=== PATIENT | female | born 1935 | race Caucasian/White ===

== ENCOUNTER 2017-02-28 04:08 | Inpatient (IN) ==
[2017-02-28] MEDS ORDERED: Naloxone 0.4 MG/ML INJ IVP PRN (08:23)
[2017-02-28] MEDS ORDERED: Ondansetron 4 MG/2 ML VIAL IVP PRN (08:23)
[2017-02-28] MEDS ORDERED: Acetaminophen 325 MG TABLET PO PRN (08:23)
--- NOTE | 2017-02-28 08:23 | Internal Med History&Physical ---
Date of Encounter: 02/28/17 Time of Encounter: 07:50 Assessment and Plan (1) CVA (cerebrovascular accident) Current visit: Yes Status: Acute Presented with stroke-like symptoms, unclear timeline but does not fit window for tPA. CT head shows old B/L basal ganglia infarcts along with new infarct in left centrum semiovale white matter, uncertain duration. Check MRI brain, 2D EChocardiogram, B/L Carotid Doppler. Start ASA, statin. Check lipid profile, HbA1C. PT/OT evaluation. Neurology consult. Continue Telemetry monitoring, check Troponins. Will; allow permissive HTN upto 180/110 at this time; may need antihypertensives at discharge. Qualifiers: CVA mechanism: unspecified Qualified Code(s): I63.9 - Cerebral infarction, unspecified (2) CHARLI (acute kidney injury) Current visit: Yes Status: Acute previous serum creatinine noted to be normal;, currently mildly elevated at 1.28 ; IV hydration and repeat BMP; likely dehydration. (3) Anemia Current visit: Yes Status: Chronic Noted to have fluctuating Hb, was around 12 2 months ago, now 9.9. Check stool for occult blood, iron profile, Vit B12, FA levels. Recent Colonoscopy was normal except divertoculosis. Qualifiers: Anemia type: unspecified type Qualified Code(s): D64.9 - Anemia, unspecified (4) CHF (congestive heart failure) Current visit: Yes Status: Acute Patient was noted to be dyspneic and congested, mild pedal edema. Chest XRay shows findings suggestive of mild pulmonary edema. Received a dose of IV Lasix in the ER. Monitor urine output and check Echocardiogram. Spot dose Lasix as needed to avoid further CHARLI. Qualifiers: Congestive heart failure type: unspecified congestive heart failure type Congestive heart failure chronicity: acute Qualified Code(s): I50.9 - Heart failure, unspecified (5) CAD (coronary artery disease) Current visit: Yes Status: Chronic h/o- PCI, however states she does not take any home meds. Start ASA, statin as above. Monitor BP closely, may need to be started on beta-oneil at discharge. Qualifiers: Coronary Disease-Associated Artery/Lesion type: [place] artery [place] vs. transplanted heart: beaver heart Associated angina: with unspecified angina Qualified Code(s): I25.119 - Atherosclerotic heart disease of beaver coronary artery with unspecified angina pectoris (6) Back pain Current visit: Yes Status: Acute secondary to recent back surgery; start pain control with PRN Oxycodone and IV Morphine, monitor closely. Qualifiers: Back pain location: low back pain Chronicity: chronic Back pain laterality: midline Sciatica presence: without sciatica Qualified Code(s): M54.5 - Low back pain; G89.29 - Other chronic pain; G89.29 - Other chronic pain Internal Medicine - H&P: HPI Chief complaint: Weakness Admitted From: Emergency Dept Plans for Post Hospital Care: Transfer Inp Rehab Fac History of present illness: Ms. Cochran is a 81 year old female with h/o- CVA, CAD was brought in by family with c/o- generalized weakness and not feeling herself since 2 days. These symptoms were reported by patient's , who is currently admitted to ICU. History obtained from her daughter at bedside, who reports that patient has been weak and lethargic, with episodes of staggering and dizziness, and intermittently mildly confused, on 02/26/17. However she attributed these symptoms to Flu as she also had chest congestion, some dry cough and shortness of breath fo the last few days. No chest pain, fever/chills, palpitations. Patient now reports right arm and hand weakness and hand numbness that have just started after arrival to the ER. No blurred vision, dysphagia, slurred speech. She reports a bad headache. Also reports abdominal pain that just started, does have chronic diarrhea but no vomiting, hematochezia. She is also uncomfortable now due to back pain from her recent spinal surgery. Of note, patient takes no meds at home except PRN Tylenol. Past Med Surg Social Fam HX - Past Medical History Medical history: arthritis, coronary artery disease, CVA, GERD, kidney stones, myocardial infarction, other Psychiatric history: depression - Past Surgical History Surgical History: angioplasty/stent, appendectomy, cholecystectomy, hip replacement (right), hysterectomy, orthopedic, other, other (spinal surgery) - Social History Smoking Status: Never smoker Smokeless Tobacco Status: No Alcohol use: none Drug use: none Occupational status: retired Current living situation: Home Activity Level: Uses cane/walker Recent Out of Country Travel Within the Last 8 Weeks: No Exposure or Possible Exposure to Illness During Travel: No - Family History Mother Living Status: Hx Family Cardiac Disorders: No Hx Family Respiratory Disorders: Yes Hx Family Cancer: Yes Hx Family GI Disorders: Yes Hx Family Genitourinary Disorders: No Hx Family Endocrine Disorder: No Hx Family Musculoskeletal Disorders: No Hx Family Neuromuscular Disorders: No Hx Family Neurologic Disorders: No Hx Family HEENT Disorders: No Hx Family Autoimmune Disorders: No Hx Family Reproductive Disorders: No Hx Family Psychosocial Disorders: No Hx Family Medical Disorders: No Internal Medicine - H&P: Meds Fluticasone Propionate Nasal [Flonase] 1 spr NS BID 02/28/17 [History] Losartan [Cozaar] 25 mg PO DAILY 02/28/17 [History] Oxycodone HCl/Acetaminophen [Percocet 10-325 mg Tablet] 1 tab PO BID PRN [History] Pramipexole Di-HCl [Pramipexole Dihydrochloride] 1.5 mg PO DAILY 02/28/17 [ History] 3 Allergy/AdvReac Type Severity Reaction Status Date / Time Penicillins Allergy Hives Verified 10/05/15 14:29 IVP Dye AdvReac Vomiting Uncoded 06/02/15 12:38 All Systems PM: A 10-system review of systems was performed and is negative for pertinent findings except as documented above in the HPI. - Constitutional Constitutional: lethargy, weakness, no chills, no fever(s), no night sweats - EENT Eyes: no change in vision, no discharge, no pain, no photophobia Ears: no ear discharge, no ear pain, no tinnitus Nose, mouth and throat: no dysphagia, no nasal discharge, no neck pain, no sore throat - Cardiovascular Cardiovascular ROS IM: no chest pain, no diaphoresis, no dyspnea, no lightheadedness, no palpitations, no syncope - Respiratory Respiratory: cough, dyspnea, chest congestion - Gastrointestinal Gastrointestinal: abdominal pain, diarrhea - Genitourinary Genitourinary: no change in urinary stream, no dysuria, no flank pain, no hematuria - Musculoskeletal Musculoskeletal ROS IM: muscle weakness, numbness - Integumentary Integumentary IM: no rash, no unusual bruising - Neurological Neurological ROS: abnormal gait, dizziness, headache(s), numbness, weakness - Hematologic/Lymphatic Hematologic/Lymphatic: no easy bruising - Constitutional Vitals: Temp Pulse Resp BP Pulse Ox 97.5 F L 85 17 145/88 95 02/28/17 06:01 02/28/17 06:01 02/28/17 06:01 02/28/17 06:01 02/28/17 06:01 General appearance: Present: mild distress, A&O X 3, answers questions appropriately - Respiratory Respiratory exam: Present: CTAB. Absent: accessory muscle use, rales, rhonchi, wheezes - Cardiovascular Cardiovascular exam: Present: RRR, +S1, +S2. Absent: diastolic murmur, gallop, rubs, systolic murmur - GI/Abdominal GI/Abdominal exam: Present: normal bowel sounds, soft (suprapubic tenderness), no peritoneal signs. Absent: distended, tenderness - Extremities Exam Extremities exam: Present: full ROM, warm, radial pulses palpable and symmetrical. Absent: calf tenderness, cyanotic, pedal edema - Neurological Exam Neurological exam: Present: CN II-XII intact, oriented X3, no focal deficits, strengths equal and symetr throughout (diffuse decrease in motor power, 4/5 B/L LE and left UE; 3-4/5 right UE). Absent: pronater drift, facial droop, speech deficit - Skin Skin exam: Present: dry, intact Internal Med - H&P Results - EKG Data EKG shows normal: sinus rhythm Rate: normal
[2017-02-28] MEDS: Azithromycin 500 MG in D5% in Water 250 ML IVPB SCH (09:32)
[2017-02-28] MEDS: Aspirin Enteric Coated 81 MG Tablet PO SCH (09:32)
[2017-02-28] MEDS: *HR* Morphine 2 MG/ML SYRINGE IVP PRN ×2 (09:35→15:57)
[2017-02-28 09:50] LABS: Calcium 9.8 mg/dL (8.6-10.8); Potassium 3.6 mEq/L (3.5-4.5)
[2017-02-28 10:12] LABS: Chol/HDL Ratio 4.1 (0-4.9); Magnesium 1.7 mg/dL (1.6-2.6)
[2017-02-28] MEDS: *HR* OxyCODONE Immed Rel 5 MG TABLET PO PRN ×2 (11:51→22:22)
[2017-02-28] MEDS ORDERED: 0.9 % Sodium Chloride 1,000 ML IVC SCH (12:15)
[2017-02-28] MEDS: ALPRAZolam 0.25 MG TABLET PO PRN ×2 (12:41→22:22)
--- NOTE | 2017-02-28 16:43 | Neurology - Consult Note ---
Date of Encounter: 02/28/17 Time of Encounter: 16:39 Assessment and Plan (1) Acute exacerbation of CHF (congestive heart failure) Current Visit: No Status: Acute Patient developed visual difficulty, shaking, generalized weakness, confusion and unsteady gait, without focal neurological deficits. MRI of brain showed no acute infarct, but chronic right parietal infarct with T2 shine through on DW images. the Chronic infarct is on the right hemisphere therefore it would not explain her right sided weakness. She does right hip pain which can cause right leg weakness. Likely this is not a neurological condition but related to medical conditions may be CHF exacerbation. She does feel better now and her neurological status returned to baseline. Will continue Aspirin 81mg daily for secondary CVA prevention. Await carotid artery duplex and echocardiography. Continue medical/cardiac work up and treatment as necessary. Will sign off now and please call if any questions Qualifiers: Congestive heart failure type: unspecified congestive heart failure type Qualified Code(s): I50.9 - Heart failure, unspecified History of Present Illness Chief complaint: stroke like symptoms HPI: Ms. Cochran is a 81 year old female with PMH significant for DM, CTS, kidney disease, CAD who developed acute onset of visual changes, shaking activity, weakness and fall in the bathroom. This occurred in the morning on Sunday. She states that she felt fine on Sunday and went to [employer]. Sunday morning she woke up when she stood up she could not see and she was also shaking the her asked her what was going on and she was feeling sick. Then she went to bathroom and fell there. She was also confused and was weak. she was brought to ER and thought not to be candidate for tPA thrombolysis. MRI of brain showed no acute intracranial abnormality. There is remote small posterior right frontal lobe infarct. and remote bilateral derebellar lacunar infarcts. noted. At present time the patient feel much better and she is back to her baseline. She has some right arm and leg weakness and some joint and hip pain. Is taking aspirin 81mg daily Past Med Surg Social Fam HX - Past Medical History Medical history: arthritis, coronary artery disease, CVA, GERD, kidney stones, myocardial infarction, other Psychiatric history: depression - Past Surgical History Surgical History: angioplasty/stent, appendectomy, cholecystectomy, hip replacement (right), hysterectomy, orthopedic, other, other (spinal surgery) - Social History Smoking Status: Never smoker Smokeless Tobacco Status: No Alcohol use: none Drug use: none - Family History Mother Living Status: Hx Family Cardiac Disorders: No Hx Family Respiratory Disorders: Yes Hx Family Cancer: Yes Hx Family GI Disorders: Yes Hx Family Genitourinary Disorders: No Hx Family Endocrine Disorder: No Hx Family Musculoskeletal Disorders: No Hx Family Neuromuscular Disorders: No Hx Family Neurologic Disorders: No Hx Family HEENT Disorders: No Hx Family Autoimmune Disorders: No Hx Family Reproductive Disorders: No Hx Family Psychosocial Disorders: No Hx Family Medical Disorders: No Medications and Allergies Fluticasone Propionate Nasal [Flonase] 1 spr NS BID 02/28/17 [History] Losartan [Cozaar] 25 mg PO DAILY 02/28/17 [History] Oxycodone HCl/Acetaminophen [Percocet 10-325 mg Tablet] 1 tab PO BID PRN [History] Pramipexole Di-HCl [Pramipexole Dihydrochloride] 1.5 mg PO DAILY 02/28/17 [ History] 3 Allergy/AdvReac Type Severity Reaction Status Date / Time Penicillins Allergy Hives Verified 10/05/15 14:29 IVP Dye AdvReac Vomiting Uncoded 06/02/15 12:38 All Systems: A 10-system review of systems was performed and is negative for pertinent findings except as documented above in the HPI. Physical Examination - Vital Signs Vital Signs: Initial Vital Signs Temp Pulse Resp BP Pulse Ox 97.5 F L 85 17 145/88 95 02/28/17 06:01 02/28/17 06:01 02/28/17 06:01 02/28/17 06:01 02/28/17 06:01 - Constitutional General appearance: comfortable - Neurologic Sensorimotor examination: intact Detailed motor examination: grossly full strength in all extremities (right side , especially the right leg is slightly weaker, able to life leg off the bed, but range of motion limited to hip and knee pain), full strength in all major muscle groups Detailed sensory examination: intact (Grossly intact) Posture: other Reflex and gait examination: other (Gait not assesse.) Reflexes: Biceps: 1+, Triceps: 1+, Brachioradialis: 1+, Patella: 1+, Achilles: 1 + Mental Status Examination: awake, alert, oriented to person, oriented to place, oriented to time, follows commands appropriately, answers questions appropriately, no agnosia, no aphasia, no aproxia Cranial nerve examination: PERRL, EOMI, visual maldonado intact, corneal reflexes brisk symmetrically, sensory to face intact, mastication intact, no facial asymmetry is present, no dysarthria, hearing is intact symmetrically, soft palate elevates bilaterally upon phonation, gag reflex intact, flexes SCM and trapezius muscles symmetrically with full power, tongue protrudes midline, no atrophy or facial fasiculations present Results - Laboratory Findings CBC and BMP: 02/28/17 09:05 Abnormal lab findings: Abnormal lab results Est GFR ( Amer) 57 (> 60) L 02/28/17 09:05 Est GFR (Non-Af Amer) 47 (> 60) L 02/28/17 09:05 Glucose 232 mg/dL (70-99) H 02/28/17 09:05 Cholesterol 208 mg/dL (< 200) H 02/28/17 09:05 LDL Cholesterol, Calc 136 mg/dL (0-99) H 02/28/17 09:05 Consult Discharge Plan - Plan Referrals: NONE,PCP [Primary Care Provider] -
[2017-02-28] MEDS: Benzocaine 20% 9 GM GEL..GRAM. TP PRN (22:24)
[2017-02-28] MEDS: Sennosides 8.6 MG TABLET PO SCH (23:14)
[2017-03-01] MEDS: *HR* Morphine 2 MG/ML SYRINGE IVP PRN ×2 (03:34→09:01)
[2017-03-01 03:47] LABS: Basophils % 0.4 %; Eosinophils # 0.1 K/mcL (0.0-0.6); Eosinophils % 1.7 %; Hematocrit 31.4 % (35.3-44.9); Immature Granulocytes % 0.5 % (0-4); Immature Platelets 3.6 % (1.1-6.1); Lymphocytes # 1.6 K/mcL (0.6-4.6); Lymphocytes % 19.9 %; Mean Corpuscular HGB Conc 31.8 g/dL (31.6-35.5); Mean Corpuscular Hemoglobin 27.3 pg (28.0-33.3); Mean Corpuscular Volume 85.8 fL (83.0-100.0); Mean Platelet Volume 10.9 fL (9.4-12.4); Monocytes # 0.6 K/mcL (0.0-1.3); Monocytes % 6.9 %; Neutrophils # 5.8 K/mcL (1.6-8.9); Platelet Count 180 K/mcL (140-400); Red Blood Count 3.66 M/mcL (3.82-4.97); Red Cell Distribution Width 15.4 % (11.5-14.5); Segmented Neutrophils % 70.6 %
[2017-03-01 04:04] LABS: BUN/Creatinine Ratio 22 (6-26); Blood Urea Nitrogen 19 mg/dL (7-20); Calcium 9.7 mg/dL (8.6-10.8); Carbon Dioxide 24 mEq/L (19-29); Chloride 105 mEq/L (98-109); Glucose 112 mg/dL (70-99); Osmolality,Calculated 291 (280-300); Potassium 4.5 mEq/L (3.5-4.5); Sodium 139 mEq/L (136-145); eGFR For African Americans > 60 (> 60); eGFR For Non-African Americans > 60 (> 60)
--- NOTE | 2017-03-01 07:15 | Internal Med Progress Note ---
<Rosalio Price - Last Filed: 03/01/17 11:44> Date of Encounter: 03/01/17 Time of Encounter: 07:14 - Assessment and plan (1) CVA (cerebral vascular accident) Current Visit: Yes Status: Acute Assessment and plan: Patient presented with stroke-like symptoms, acute onset of visual changes, shaking activity, weakness and fall in the bathroom She reports numbness and weakness in her right leg and right digits 3 -5 and seeing black spots this morning. She was not to be candidate for tPA thrombolysis due to onset of symptoms early Sunday morning CT head shows old B/L basal ganglia infarcts along with new infarct in left centrum semiovale white matter, uncertain duration. MRI of brain showed no acute intracranial abnormality. There is remote small posterior right frontal lobe infarct and remote bilateral derebellar lacunar infarcts. noted. 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 CXR shows findings suggestive of mild pulmonary edema. Echocardiogram reveals LVEF 60-65%. Mild left ventricular diastolic dysfunction. Received a dose of IV Lasix in the ER. Spot dose Lasix as needed to avoid further CHARLI. Monitor urine output Qualifiers: Congestive heart failure type: diastolic Congestive heart failure chronicity: acute Qualified Code(s): I50.31 - Acute diastolic (congestive) heart failure (3) CHARLI (acute kidney injury) Current Visit: Yes Status: Acute Assessment and plan: Previous serum creatinine noted to be normal;, currently mildly elevated at 1.28 on admission; repeat BMP improved after IV hydration; likely dehydration. (4) Essential (primary) hypertension Current Visit: Yes Status: Acute Assessment and plan: Monitor BP closely, patient on Losartan 25MG PO daily (5) CAD (coronary artery disease) Current Visit: Yes Status: Chronic Assessment and plan: h/o- PCI, however states she does not take any home meds. Continue ASA, statin as above. Monitor BP closely, may need to be started on beta-oneil at discharge. Qualifiers: Coronary Disease-Associated Artery/Lesion type: [place] artery [place] vs. transplanted heart: [place] heart Associated angina: with unspecified angina Qualified Code(s): I25.119 - Atherosclerotic heart disease of [place] coronary artery with unspecified angina pectoris (6) Diabetes mellitus Current Visit: No Status: Chronic Assessment and plan: HGB a1c 5.7 Continue to monitor Qualifiers: Diabetes mellitus type: type 2 Diabetes mellitus complication status: with unspecified complications Diabetes mellitus skilled nursing insulin use: unspecified buttermaker helper insulin use status Qualified Code(s): E11.8 - Type 2 diabetes mellitus with unspecified complications (7) Anemia Current Visit: Yes Status: Chronic Assessment and plan: Noted to have fluctuating Hgb, was around 12 two months ago, now 10. Check stool for occult blood, iron profile, Vit B12, FA levels. Recent Colonoscopy was normal except diverticulosis. Continue to monitor Qualifiers: Anemia type: unspecified type Qualified Code(s): D64.9 - Anemia, unspecified (8) Back pain Current Visit: Yes Status: Acute Assessment and plan: Secondary to recent back surgery; start pain control with PRN Oxycodone and IV Morphine, monitor closely. Qualifiers: Back pain location: low back pain Chronicity: chronic Back pain laterality: midline Sciatica presence: without sciatica Qualified Code(s): M54.5 - Low back pain; G89.29 - Other chronic pain; G89.29 - Other chronic pain (9) DVT prophylaxis Current Visit: No Status: Acute Assessment and plan: SCDs - Subjective Interval history: Patient resting comfortably in bed after eating breakfast. She reports numbness and weakness in her right leg and right digits 3 -5 and seeing black spots this morning. Patient also reports productive cough for the past 2 weeks despite finishing 4 bottles of cough syrup and dysuria. Patient denies fever, chills, CP , N/V/D, or leg edema. - Constitutional Vitals: Temp Pulse Resp BP Pulse Ox 98.2 F 59 20 126/59 94 03/01/17 04:00 03/01/17 04:00 03/01/17 04:00 03/01/17 04:00 03/01/17 04:00 General appearance: Present: cooperative, A&O X 3, pleasant, no acute distress, answers questions appropriately - Head Head exam: Present: atraumatic, normal inspection, normocephalic - Eye Eye exam: Present: EOMI, PERRL - ENT ENT exam: Present: mucous membranes dry, normal oropharynx - Neck Neck exam general surgery: Present: normal inspection, supple. Absent: tenderness - Respiratory Respiratory exam: Present: CTAB. Absent: accessory muscle use, respiratory distress, wheezes - Cardiovascular Cardiovascular exam: Present: RRR, +S1, +S2 - GI/Abdominal GI/Abdominal exam: Present: normal bowel sounds. Absent: distended, guarding, tenderness - Additional comments: no posey - Extremities Exam Extremities exam: Present: normal inspection, pedal edema (1+), radial pulses palpable and symmetrical - Back Exam Back exam: Present: normal inspection. Absent: tenderness, vertebral tenderness - Neurological Exam Neurological exam: Present: alert, oriented X3. Absent: altered, strengths equal and symetr throughout, pronater drift, facial droop, speech deficit - Expanded Neurological Exam Neurological exam expanded: Present: protecting the airway Patient oriented to: Present: person, place, time Speech: Present: fluid speech Cerebellar function: finger to nose: Normal Sensory exam: lower extremity light touch: Normal, upper extremity light touch: Normal Neuro motor strength exam: LUE: 5, RUE: 4, LLE: 5, RLE: 4 Coma Scale Eye Opening: Spontaneous Coma Scale Motor Response: Obeys Commands Coma Scale Verbal Response: Oriented Coma Scale Total: 15 - Psychiatric Psychiatric exam: Present: normal affect, normal mood - Skin Skin exam: Present: dry, normal color, warm. Absent: pallor Internal Medicine: Result - Labs CBC & Chem 7: 03/01/17 03:27 03/01/17 03:27 Labs: Short CBC 03/01/17 Range/Units 03:27 WBC 8.1 (4.3-11.1) K/mcL Hgb 10.0 L (11.5-15.4) g/dL Hct 31.4 L (35.3-44.9) % Plt Count 180 (140-400) K/mcL Neutrophils # 5.8 (1.6-8.9) K/mcL BMP 02/28/17 03/01/17 09:05 03:27 Sodium 139 139 Potassium 3.6 4.5 Chloride 104 105 Carbon Dioxide 22 24 BUN 19 19 Creatinine 1.11 0.87 Glucose 232 H 112 H Calcium 9.8 9.7 Cardiac Enzymes 02/28/17 02/28/17 02/28/17 Range/Units 09:05 14:13 21:43 Troponin I 0.01 0.00 0.00 (0-0.03) ng/mL - Pulse Oximetry Interpretation Digit-Finger Pulse Oximetry Readin (on RA) - Impressions Impressions Brain MRI 02/28/17 08:27 IMPRESSION: No acute intracranial abnormality. Remote, small posterior right frontal lobe infarct. Mild chronic microvascular ischemic disease and multiple, remote bilateral cerebellar lacunar infarcts. D/ / 02/28/2017 11:00:27 Sherry Pollock MD / ernst Interpreting Provider: Sherry Pollock MD Echocardiogram 02/28/17 08:27 Impressions: LVEF 60-65%. Mild left ventricular diastolic dysfunction. Normal right ventricular structure and function. Mild aortic regurgitation. Mild tricuspid regurgitation. No pulmonary hypertension. No evidence of PFO with agitated saline contrast. Left Ventricular Wall Motion: Rest Echo Findings All wall segments showed normal motion. Findings: Study Quality * Technically adequate exam. ECG Findings * Normal sinus rhythm. Left Ventricle * LVEF 60-65%. * Asymmetric basal septal hypertrophy. LVOT not fully evaluated by Doppler. * Mild left ventricular diastolic dysfunction. Right Ventricle * Normal right ventricular structure and function. Left Atrium * Normal left atrial size. Right Atrium * Normal right atrial size. Aortic Valve * Trileaflet aortic valve. * Normal aortic valve structure. * No aortic stenosis. * Mild aortic regurgitation. Mitral Valve * Normal mitral valve structure. * No mitral stenosis. * Mild mitral annular calcification * Trace mitral regurgitation. Tricuspid Valve * Mild tricuspid regurgitation. * Normal tricuspid valve structure. * Estimated RA pressure is 3 mmHg. * Estimated RVSP is 28 mmHg. * No pulmonary hypertension. Pulmonic Valve * Pulmonic valve is not well visualized. * No pulmonic stenosis. * No pulmonic regurgitation. Pulmonary Artery * Pulmonary artery not well visualized. Aorta * Normally sized aortic root. Pericardium * There is no pericardial effusion present. Interatrial Septum * No evidence of PFO by color Doppler. * No evidence of PFO with agitated saline contrast. IVC * Normal IVC dimensions and inspiratory collapse. Consult Discharge Plan - Plan Referrals: NONE,PCP [Primary Care Provider] - <Pro Bunn P - Last Filed: 03/01/17 18:08> Date of Encounter: 03/01/17 - Constitutional Vitals: Temp Pulse Resp BP Pulse Ox 98.7 F 75 14 155/86 97 03/01/17 15:08 03/01/17 15:08 03/01/17 15:08 03/01/17 15:08 03/01/17 15:08 Internal Medicine: Result - Labs CBC & Chem 7: 03/01/17 03:27 03/01/17 03:27 Labs: Short CBC 03/01/17 Range/Units 03:27 WBC 8.1 (4.3-11.1) K/mcL Hgb 10.0 L (11.5-15.4) g/dL Hct 31.4 L (35.3-44.9) % Plt Count 180 (140-400) K/mcL Neutrophils # 5.8 (1.6-8.9) K/mcL BMP 03/01/17 03:27 Sodium 139 Potassium 4.5 Chloride 105 Carbon Dioxide 24 BUN 19 Creatinine 0.87 Glucose 112 H Calcium 9.7 Cardiac Enzymes 02/28/17 Range/Units 21:43 Troponin I 0.00 (0-0.03) ng/mL Urine 03/01/17 Range/Units 12:33 Urine Color Yellow (Yellow) Urine Clarity Clear (Clear) Urine pH 6.0 (5.0-8.0) pH Units Ur Specific Start 1.011 (1.010-1.025) Urine Protein Negative (Neg-Trace) mg/dL Urine Glucose (UA) Normal (Normal) mg/dL - Impressions Impressions Chest X-Ray 03/01/17 09:09 IMPRESSION: COPD without acute cardiopulmonary process identified. D/ / Rosalio Edwards MD / Rosalio Edwards MD Interpreting Provider: Rosalio Edwards MD Videofluoroscopic Swallow 03/01/17 14:28 IMPRESSION: No aspiration. Transient penetration with applesauce and thin liquid. Please see separate speech pathology report for full discussion of findings and recommendations. D/ / Olu Emerson MD / Olu Emerson MD Interpreting Provider: Olu Emerson MD - Attending Attestation I examined this patient and my medical decision-making was reviewed with the Resident Physician. I agree with the documented findings, disposition and treatment plan as described except to the extent set forth below. 81/female Admitted with weakness. Evaluated by neurology. Neurologic does not feel this is likely secondary to any cerebrovascular insult. We will follow the recommendations from neurology.
[2017-03-01] MEDS: Aspirin Enteric Coated 81 MG Tablet PO SCH (08:44)
[2017-03-01] MEDS: Sennosides 8.6 MG TABLET PO SCH (08:44)
[2017-03-01] MEDS: Azithromycin 500 MG in D5% in Water 250 ML IVPB SCH (08:45)
[2017-03-01 08:54] LABS: Hemoglobin A1C 5.7 %
[2017-03-01] MEDS: GuaiFENesin/Dextromethorphan TABLET PO SCH ×2 (09:08→21:26)
[2017-03-01] MEDS: Ipratropium/Albuterol Neb 3 ML IH SCH ×3 (10:35→22:21)
--- NOTE | 2017-03-01 12:08 | Neurology Progress Note ---
Date of Encounter: 03/01/17 Time of Encounter: 12:04 Assessment and Plan (1) Acute exacerbation of CHF (congestive heart failure) Current Visit: No Status: Inactive Patient seen and examined. 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 Carotid artery duplex already done pending result. Right leg weakness likely the results of lumbar radiculopathy/spondylosis and she has chronic weakness to the right leg aggravated by right knee and hip. She is to follow up with Ortho at [place] in March/2017. Do not feel that CTA of brain will offer additional benefits, unless carotid artery duplex study returns remarkable. Will sign off at this time i will gladly see the patient again at your request. Qualifiers: Congestive heart failure type: unspecified congestive heart failure type Qualified Code(s): I50.9 - Heart failure, unspecified Subjective Principal diagnosis: visual changes and leg weakness Interval history: patient seen and examined. She complained of having visual changes this AM seeing flashes or even tunnel vision when assessed by PT. Visual changes bilateral and last few seconds in duration. Resolved. Right leg is weak, likely result from lumbar spondylosis. She states that she has been getting stronger after the back surgery in November/2016. Hip flexion 4+/ 5. She tells me that she was weaker prior to lumbar surgery and that she has been slowly improving and became stronger Objective - Constitutional Vitals: Temp Pulse Resp BP Pulse Ox 98.0 F 65 12 155/86 95 03/01/17 10:50 03/01/17 10:50 03/01/17 10:50 03/01/17 10:50 03/01/17 10:50 - Neurological Exam Sensorimotor examination: Present: intact Motor Examination: Present: grossly full strength in all extremities (Right hip flexion 4+/5. hand chaperone equal), full strength in all major muscle groups Motor examination - right side: 4/5: hip flexors, tibialis Anterior, quadriceps , toe extension (EHL), plantarflexion, 5/5: deltoids, biceps, triceps, wrist flexion, wrist extension, tray drier Motor examination - left side: 5/5: deltoids, biceps, triceps, wrist flexion, wrist extension, hip flexors, tray drier, quadriceps, tibialis Anterior, toe extension (EHL), plantarflexion Sensation intact: Present: intact (Grossly intact) Posture: Present: other Reflex and gait examination: other (Gait not assesse.) Reflexes: Biceps: 1+, Triceps: 1+, Brachioradialis: 1+, Patella: 1+, Achilles: 1 + Mental Status Examination: Present: awake, alert, oriented to person, oriented to place, oriented to time, follows commands appropriately, answers questions appropriately, no agnosia, no aphasia, no aproxia Cranial nerve examination: Present: PERRL, EOMI, visual maldonado intact, corneal reflexes brisk symmetrically, sensory to face intact, mastication intact, no facial asymmetry is present, no dysarthria, hearing is intact symmetrically, soft palate elevates bilaterally upon phonation, gag reflex intact, flexes SCM and trapezius muscles symmetrically with full power, tongue protrudes midline, no atrophy or facial fasiculations present Results - Laboratory Findings CBC and BMP: 03/01/17 03:27 03/01/17 03:27 Abnormal lab findings: Abnormal lab results RBC 3.66 M/mcL (3.82-4.97) L 03/01/17 03:27 Hgb 10.0 g/dL (11.5-15.4) L 03/01/17 03:27 Hct 31.4 % (35.3-44.9) L 03/01/17 03:27 MCH 27.3 pg (28.0-33.3) L 03/01/17 03:27 RDW 15.4 % (11.5-14.5) H 03/01/17 03:27 Glucose 112 mg/dL (70-99) H 03/01/17 03:27 Hemoglobin A1c 5.7 % (-5.6) H 03/01/17 03:27 Cholesterol 208 mg/dL (< 200) H 02/28/17 09:05 LDL Cholesterol, Calc 136 mg/dL (0-99) H 02/28/17 09:05 Consult Discharge Plan - Plan Referrals: NONE,PCP [Primary Care Provider] -
[2017-03-01 12:54] LABS: Bilirubin,Urine Negative (Negative); Blood,Urine Negative (Negative); Clarity,Urine Clear (Clear); Color,Urine Yellow (Yellow); Glucose,Urine (UA) Normal (Normal); Ketones,Urine Negative (Negative); Leukocyte Esterase,Urine Trace (Negative); Nitrite,Urine Positive (Negative); Protein,Urine Negative (Neg-Trace); Specific Gravity,Urine 1.011 (1.010-1.025); Urobilinogen,Urine Normal (Normal)
[2017-03-01 12:57] LABS: Bacteria,Urine Many per hpf (None-Few); Hyaline Casts,Urine None Seen per lpf (None-Few); RBC,Urine 0-3 per hpf (0-3); Squamous Epithelial Cell,Urine Many per lpf (None-Few)
[2017-03-01] MEDS: ALPRAZolam 0.25 MG TABLET PO PRN (14:45)
[2017-03-01] MEDS: *HR* OxyCODONE Immed Rel 5 MG TABLET PO PRN ×2 (14:45→22:03)
[2017-03-02] MEDS: *HR* Morphine 2 MG/ML SYRINGE IVP PRN (02:31)
[2017-03-02] MEDS: Ipratropium/Albuterol Neb 3 ML IH SCH ×4 (04:04→22:23)
[2017-03-02 04:20] LABS: BUN/Creatinine Ratio 25 (6-26); Blood Urea Nitrogen 23 mg/dL (7-20); Calcium 9.3 mg/dL (8.6-10.8); Carbon Dioxide 25 mEq/L (19-29); Chloride 104 mEq/L (98-109); Glucose 119 mg/dL (70-99); Osmolality,Calculated 293 (280-300); Potassium 4.3 mEq/L (3.5-4.5); Sodium 139 mEq/L (136-145); eGFR For African Americans > 60 (> 60); eGFR For Non-African Americans 60 (> 60)
[2017-03-02 04:41] LABS: Hemoglobin 9.8 g/dL (11.5-15.4); Mean Corpuscular HGB Conc 30.6 g/dL (31.6-35.5); Mean Corpuscular Hemoglobin 26.8 pg (28.0-33.3); Mean Corpuscular Volume 87.4 fL (83.0-100.0); Mean Platelet Volume 10.8 fL (9.4-12.4); Platelet Count 176 K/mcL (140-400); Red Blood Count 3.66 M/mcL (3.82-4.97); Red Cell Distribution Width 15.6 % (11.5-14.5)
--- NOTE | 2017-03-02 06:40 | Discharge Summary ---
Date of Encounter: 03/02/17 Time of Encounter: 06:39 - Discharge Diagnosis (1) CVA (cerebral vascular accident) Priority: Primary Status: Acute Comments: Patient presented with stroke-like symptoms, acute onset of visual changes, shaking activity, weakness and fall in the bathroom She reports numbness and weakness in her right leg and right digits 3 -5 and seeing black spots this morning. She was not to be candidate for tPA thrombolysis due to onset of symptoms early Sunday morning CT head shows old B/L basal ganglia infarcts along with new infarct in left centrum semiovale white matter, uncertain duration. MRI of brain showed no acute intracranial abnormality. There is remote small posterior right frontal lobe infarct and remote bilateral derebellar lacunar infarcts. noted. 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 CXR shows findings suggestive of mild pulmonary edema. Echocardiogram reveals LVEF 60-65%. Mild left ventricular diastolic dysfunction. Received a dose of IV Lasix in the ER. Spot dose Lasix as needed to avoid further CHARLI. Monitor urine output (4) Essential (primary) hypertension Status: Acute Comments: Monitor BP closely (5) CAD (coronary artery disease) Status: Chronic Comments: Previous serum creatinine noted to be normal;, currently mildly elevated at 1.28 on admission; repeat BMP improved after IV hydration; likely dehydration. Qualifiers: Coronary Disease-Associated Artery/Lesion type: [place] artery [place] vs. transplanted heart: [place] heart Associated angina: with unspecified angina Qualified Code(s): I25.119 - Atherosclerotic heart disease of [place] coronary artery with unspecified angina pectoris (6) Diabetes mellitus Priority: Secondary Status: Chronic Comments: Diet controlled HGB a1c 5.7 Continue to monitor Qualifiers: Diabetes mellitus type: type 2 Diabetes mellitus complication status: with unspecified complications Diabetes mellitus prison insulin use: unspecified prison insulin use status Qualified Code(s): E11.8 - Type 2 diabetes mellitus with unspecified complications (7) Anemia Priority: Secondary Status: Chronic Comments: Noted to have fluctuating Hgb, was around 12 two months ago, now 9.8. Check stool for occult blood, iron profile, Vit B12, FA levels. Recent Colonoscopy was normal except diverticulosis. Continue to monitor Qualifiers: Anemia type: unspecified type Qualified Code(s): D64.9 - Anemia, unspecified (8) Back pain Status: Acute Comments: Secondary to recent back surgery; start pain control with PRN Oxycodone and IV Morphine, monitor closely. Qualifiers: Back pain location: low back pain Chronicity: chronic Back pain laterality: midline Sciatica presence: without sciatica Qualified Code(s): M54.5 - Low back pain; G89.29 - Other chronic pain; G89.29 - Other chronic pain (9) DVT prophylaxis Status: Acute Comments: Encourage ambulation Continue Aspirin 81mg daily - Discharge Medications Prescriptions: OxyCODONE Immed Rel [Roxicodone 5 MG] 5 mg PO Q6HR PRN #9 tablet PRN Reason: Moderate Pain (4-6) Atorvastatin [Lipitor] 40 mg PO HS #30 tablet Lidocaine Patch [Lidoderm 5% patch] 1 each TP DAILY PRN #30 adh..patch PRN Reason: Pain Sennosides [Senna] 8.6 mg PO BID PRN #60 tablet PRN Reason: Constipation Home Medications: Fluticasone Propionate Nasal [Flonase] 1 spr NS BID 02/28/17 [History] Losartan [Cozaar] 25 mg PO DAILY 02/28/17 [History] Oxycodone HCl/Acetaminophen [Percocet 10-325 mg Tablet] 1 tab PO BID PRN [History] Pramipexole Di-HCl [Pramipexole Dihydrochloride] 1.5 mg PO DAILY 02/28/17 [ History] ALPRAZolam [Xanax 0.25 MG Tablet] 0.25 mg PO BID PRN tablet 03/02/17 [Rx] Acetaminophen [Tylenol] 650 mg PO Q6HR PRN tablet 03/02/17 [Rx] Aspirin Enteric Coated [Aspirin EC] 81 mg PO DAILY tablet. 03/02/17 [Rx] Atorvastatin [Lipitor] 40 mg PO HS #30 tablet 03/02/17 [Rx] Benzocaine 20% [Orajel] 1 gm TP TID PRN gel..gram. 03/02/17 [Rx] Docusate [Colace] 100 mg PO DAILY PRN capsule 03/02/17 [Rx] GuaiFENesin/Dextromethorphan [Mucinex Dm] 1 each PO BID tab.er.12h 03/02/17 [Rx ] Lidocaine Patch [Lidoderm 5% patch] 1 each TP DAILY PRN #30 adh..patch 03/02/17 [Rx] OxyCODONE Immed Rel [Roxicodone 5 MG] 5 mg PO Q6HR PRN #9 tablet 03/02/17 [Rx] Sennosides [Senna] 8.6 mg PO BID PRN #60 tablet 03/02/17 [Rx] Allergies/Adverse Reactions: 3 Allergy/AdvReac Type Severity Reaction Status Date / Time Penicillins Allergy Hives Verified 10/05/15 14:29 IVP Dye AdvReac Vomiting Uncoded 06/02/15 12:38 Procedures/tests Complete & Pending: Procedures Performed prior 72 hours Category Date Time Status MR head/brain wo con [MR] Routine MRI 02/28/17 08:27 Draft EV carotid duplex imaging BI Routine Y 02/28/17 08:27 Completed EV echo with saline Routine Y 02/28/17 08:27 Completed Date of admission: 02/28/17 10:15 Primary care physician: PCP NONE Consults: 02/28/17 08:25 Consult to Occupational Therapy [CONS] Routine Comment: Evaluate, develop and implement POC Reason for Consult: Back pain, right arm/hand weakness, generalized weakness Consult to Physical Therapy [CONS] Routine Comment: Evaluate, develop and implement POC Reason for Consult: Back pain, right arm/hand weakness, generalized weakness 02/28/17 09:01 Consult to Neurology [CONS] Routine Consulting Provider: Neu[facility] Reason for Consult: Right UE Weakness, new lacunar infarct on CT head Call Completed: No 03/01/17 14:15 Consult to Speech Therapy [CONS] Routine Comment: Evaluate, develop and implement POC Reason for Consult: r/o aspiration s/p CVA, please perform modified barium swallow study Call Completed: No Discharging clinician: Roslaio Price Anticipated date of discharge: 03/02/17 - Patient Status Disposition: Transfer Inpatient Rehab Fac Condition: Good Functional capacity at discharge: uses cane/walker Overall status at discharge: patient is progressing back to baseline - Discharge Instructions Follow Up With: NONE,PCP [Primary Care Provider] - - Diet and Activity Activity: ambulate only with your walker, increase activity as tolerated Diet: advance to your usual diet Hospital course: Ms. Cochran is a 81 year old female - Time Spent with Patient Total time spent providing and/or coordinating discharge services: - Constitutional Vitals: Temp Pulse Resp BP Pulse Ox 98.2 F 73 16 116/55 92 03/02/17 04:00 03/02/17 04:00 03/02/17 04:04 03/02/17 04:00 03/02/17 04:04 General appearance: Present: cooperative, A&O X 3, pleasant, no acute distress, answers questions appropriately - Stroke Contraindication Not Initiating IV-Tpa: Medical contraindication Onset of Symptoms Date: 02/26/17 Symptom Onset Unknown: No Has Patient Been Evaluated by Rehab for Stroke: Yes
[2017-03-02] MEDS: *HR* OxyCODONE Immed Rel 5 MG TABLET PO PRN ×2 (09:30→18:20)
[2017-03-02] MEDS: Aspirin Enteric Coated 81 MG Tablet PO SCH (09:30)
[2017-03-02] MEDS: Sennosides 8.6 MG TABLET PO SCH (09:31)
[2017-03-02] MEDS: GuaiFENesin/Dextromethorphan TABLET PO SCH ×2 (09:31→21:15)
[2017-03-02] MEDS: Azithromycin 500 MG in D5% in Water 250 ML IVPB SCH (09:32)
--- NOTE | 2017-03-02 10:04 | Physician Discharge Referral ---
<Rosalio Price - Last Filed: 03/02/17 10:02> [facility] Referral Info Transfer To: Inpatient rehab Provider in Charge: Pro Bunn Provider in Charge after Transfer: PCP Institutional Level of Care: Skilled - Diagnosis (1) CVA (cerebral vascular accident) Priority: Primary Status: Acute (2) CHF (congestive heart failure) Priority: Primary Status: Acute (4) CHARLI (acute kidney injury) Priority: Primary Status: Acute (5) Essential (primary) hypertension Priority: Secondary Status: Acute (7) CAD (coronary artery disease) Priority: Secondary Status: Chronic (8) Diabetes mellitus Priority: Secondary Status: Chronic (9) Anemia Priority: Secondary Status: Chronic (10) Back pain Priority: Secondary Status: Acute (12) DVT prophylaxis Priority: Primary Status: Acute Prognosis: Good Aware of Diagnosis: Patient Aware of Prognosis: Patient - Transfer Medications Prescriptions: OxyCODONE Immed Rel [Roxicodone 5 MG] 5 mg PO Q6HR PRN #9 tablet PRN Reason: Moderate Pain (4-6) Atorvastatin [Lipitor] 40 mg PO HS #30 tablet Carvedilol [Coreg] 3.125 mg PO BIDWM #60 tablet Lidocaine Patch [Lidoderm 5% patch] 1 each TP DAILY PRN #30 adh..patch PRN Reason: Pain Lisinopril [Zestril] 2.5 mg PO DAILY #30 tablet Nitrofurantoin (BID) [Macrobid] 100 mg PO BIDWM #8 capsule Sennosides [Senna] 8.6 mg PO BID PRN #60 tablet PRN Reason: Constipation Home Medications: Fluticasone Propionate Nasal [Flonase] 1 spr NS BID 02/28/17 [History] Losartan [Cozaar] 25 mg PO DAILY 02/28/17 [History] Oxycodone HCl/Acetaminophen [Percocet 10-325 mg Tablet] 1 tab PO BID PRN [History] Pramipexole Di-HCl [Pramipexole Dihydrochloride] 1.5 mg PO DAILY 02/28/17 [ History] ALPRAZolam [Xanax 0.25 MG Tablet] 0.25 mg PO BID PRN tablet 03/02/17 [Rx] Acetaminophen [Tylenol] 650 mg PO Q6HR PRN tablet 03/02/17 [Rx] Aspirin Enteric Coated [Aspirin EC] 81 mg PO DAILY tablet.dr 03/02/17 [Rx] Atorvastatin [Lipitor] 40 mg PO HS #30 tablet 03/02/17 [Rx] Benzocaine 20% [Orajel] 1 gm TP TID PRN gel..gram. 03/02/17 [Rx] Docusate [Colace] 100 mg PO DAILY PRN capsule 03/02/17 [Rx] GuaiFENesin/Dextromethorphan [Mucinex Dm] 1 each PO BID tab.er.12h 03/02/17 [Rx ] Lidocaine Patch [Lidoderm 5% patch] 1 each TP DAILY PRN #30 adh..patch 03/02/17 [Rx] OxyCODONE Immed Rel [Roxicodone 5 MG] 5 mg PO Q6HR PRN #9 tablet 03/02/17 [Rx] Sennosides [Senna] 8.6 mg PO BID PRN #60 tablet 03/02/17 [Rx] Carvedilol [Coreg] 3.125 mg PO BIDWM #60 tablet 03/03/17 [Rx] Lisinopril [Zestril] 2.5 mg PO DAILY #30 tablet 03/03/17 [Rx] Nitrofurantoin (BID) [Macrobid] 100 mg PO BIDWM #8 capsule 03/03/17 [Rx] Allergies/Adverse Reactions: 3 Allergy/AdvReac Type Severity Reaction Status Date / Time Penicillins Allergy Hives Verified 10/05/15 14:29 IVP Dye AdvReac Vomiting Uncoded 06/02/15 12:38 - Respiratory Orders Smoking Cessation: Smoking cessation has been advised. For more information, call the [place] Tobacco Quit Line at 5-219-NRZU-NOW. - Mobility Orders Ambulate - Rehabiliation Orders Rehab Potential: Good Rehab Orders: Evaluation for Physical Therapy, Evaluation for Occupational Therapy - Diet Orders Cardiac (Chopped Meat) CERTIFICATION: I certify that the transfer of the above named patient to an Extended Care Facility is necessary for the continuing treatment of the diagnosis listed. The above information is true and accurate reflection of patient's current condition. Confidential - Redisclosure prohibited without a patient's written consent. <Pro Bunn P - Last Filed: 03/03/17 17:37> - Respiratory Orders Smoking Cessation: Smoking cessation has been advised. For more information, call the [place] Tobacco Quit Line at 4-335-FTDC-NOW. CERTIFICATION: I certify that the transfer of the above named patient to an Extended Care Facility is necessary for the continuing treatment of the diagnosis listed. The above information is true and accurate reflection of patient's current condition. Confidential - Redisclosure prohibited without a patient's written consent.
--- NOTE | 2017-03-02 10:48 | Internal Med Progress Note ---
<Rosalio Price - Last Filed: 03/02/17 10:46> Date of Encounter: 03/02/17 Time of Encounter: 06:40 - Assessment and plan (1) CVA (cerebral vascular accident) Current Visit: Yes Status: Acute Assessment and plan: Patient presented with stroke-like symptoms, acute onset of visual changes, shaking activity, weakness and fall in the bathroom She reports numbness and weakness in her right leg and right digits 3 -5 and seeing black spots this morning. She was not to be candidate for tPA thrombolysis due to onset of symptoms early Sunday morning CT head shows old B/L basal ganglia infarcts along with new infarct in left centrum semiovale white matter, uncertain duration. MRI of brain showed no acute intracranial abnormality. There is remote small posterior right frontal lobe infarct and remote bilateral derebellar lacunar infarcts. noted. 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 CXR shows findings suggestive of mild pulmonary edema. Echocardiogram reveals LVEF 60-65%. Mild left ventricular diastolic dysfunction. Received a dose of IV Lasix in the ER. Spot dose Lasix as needed to avoid further CHARLI. Monitor urine output Monitor BP closely Low dose Coreg and Lisinopril Qualifiers: Congestive heart failure type: diastolic Congestive heart failure chronicity: acute Qualified Code(s): I50.31 - Acute diastolic (congestive) heart failure (3) UTI (urinary tract infection) Current Visit: Yes Status: Acute Assessment and plan: Patient reports urinary frequency/ urgency UA positive nitirites, trace leukocyte esterase, 5-15 WBC, and many Bacteria Urine culture pending She received 3 days of Azithromycin Allergic to PCN Macrobid 100mg PO BID of 5 days Qualifiers: Urinary tract infection type: acute cystitis Hematuria presence: without hematuria Qualified Code(s): N30.00 - Acute cystitis without hematuria (4) CHARLI (acute kidney injury) Current Visit: Yes Status: Acute Assessment and plan: Previous serum creatinine noted to be normal; mildly elevated at 1.28 on admission; repeat BMP improved after IV hydration; likely dehydration. (5) Essential (primary) hypertension Current Visit: Yes Status: Acute Assessment and plan: Monitor BP closely Low dose Coreg and Lisinopril (6) CAD (coronary artery disease) Current Visit: Yes Status: Chronic Assessment and plan: h/o- PCI, however states she does not take any home meds. Continue ASA, statin as above. Monitor BP closely Qualifiers: Coronary Disease-Associated Artery/Lesion type: [place] artery [place] vs. transplanted heart: [place] heart Associated angina: with unspecified angina Qualified Code(s): I25.119 - Atherosclerotic heart disease of [place] coronary artery with unspecified angina pectoris (7) Diabetes mellitus Current Visit: No Status: Chronic Assessment and plan: HGB a1c 5.7 Continue to monitor Qualifiers: Diabetes mellitus type: type 2 Diabetes mellitus complication status: with unspecified complications Diabetes mellitus intermediate card tender insulin use: unspecified assisted insulin use status Qualified Code(s): E11.8 - Type 2 diabetes mellitus with unspecified complications (8) Anemia Current Visit: Yes Status: Chronic Assessment and plan: Noted to have fluctuating Hgb, was around 12 two months ago, now 10. Check stool for occult blood, iron profile, Vit B12, FA levels. Recent Colonoscopy was normal except diverticulosis. Continue to monitor Qualifiers: Anemia type: unspecified type Qualified Code(s): D64.9 - Anemia, unspecified (9) Back pain Current Visit: Yes Status: Acute Assessment and plan: Secondary to recent back surgery; start pain control with PRN Oxycodone and IV Morphine, monitor closely. Qualifiers: Back pain location: low back pain Chronicity: chronic Back pain laterality: midline Sciatica presence: without sciatica Qualified Code(s): M54.5 - Low back pain; G89.29 - Other chronic pain; G89.29 - Other chronic pain (10) DVT prophylaxis Current Visit: No Status: Acute Assessment and plan: SCDs - Subjective Interval history: Patient resting comfortably in bed after eating breakfast. She reports increased urinary frequency and pain in her left arm today at IV infusion site. She has decreased numbness and weakness in her right leg and right hand. She denies vision changes this morning. Patient will continue PT/OT today. Patient denies fever, chills, CP, N/V/D, dysuria, or leg edema. - Constitutional Vitals: Temp Pulse Resp BP Pulse Ox 97.7 F 70 18 148/97 97 03/02/17 07:41 03/02/17 07:41 03/02/17 07:41 03/02/17 07:41 03/02/17 07:41 General appearance: Present: cooperative, A&O X 3, pleasant, no acute distress, answers questions appropriately - Head Head exam: Present: atraumatic, normal inspection, normocephalic - Eye Eye exam: Present: PERRL - ENT ENT exam: Present: mucous membranes moist, normal oropharynx - Neck Neck exam general surgery: Present: supple. Absent: lymphadenopathy, normal inspection - Respiratory Respiratory exam: Present: CTAB. Absent: accessory muscle use, respiratory distress, wheezes - Cardiovascular Cardiovascular exam: Present: RRR, +S1, +S2 - GI/Abdominal GI/Abdominal exam: Present: normal bowel sounds, soft. Absent: guarding - Additional comments: no posey - Extremities Exam Extremities exam: Present: normal inspection (no thrombophlebitis), warm, radial pulses palpable and symmetrical. Absent: pedal edema - Back Exam Back exam: Present: normal inspection. Absent: paraspinal tenderness, tenderness - Neurological Exam Neurological exam: Present: alert, oriented X3, no focal deficits, strengths equal and symetr throughout. Absent: altered, speech deficit - Psychiatric Psychiatric exam: Present: normal affect, normal mood - Skin Skin exam: Present: dry, warm. Absent: rash Internal Medicine: Result - Labs CBC & Chem 7: 03/02/17 03:14 03/02/17 03:14 Labs: Short CBC 03/02/17 Range/Units 03:14 WBC 6.7 (4.3-11.1) K/mcL Hgb 9.8 L (11.5-15.4) g/dL Hct 32.0 L (35.3-44.9) % Plt Count 176 (140-400) K/mcL BMP 03/02/17 03:14 Sodium 139 Potassium 4.3 Chloride 104 Carbon Dioxide 25 BUN 23 H Creatinine 0.91 Glucose 119 H Calcium 9.3 Urine 03/01/17 Range/Units 12:33 Urine Color Yellow (Yellow) Urine Clarity Clear (Clear) Urine pH 6.0 (5.0-8.0) pH Units Ur Specific [place] 1.011 (1.010-1.025) Urine Protein Negative (Neg-Trace) mg/dL Urine Glucose (UA) Normal (Normal) mg/dL - Impressions Impressions Brain MRI 02/28/17 08:27 IMPRESSION: No acute intracranial abnormality. Remote, small posterior right frontal lobe infarct. Mild chronic microvascular ischemic disease and multiple, remote bilateral cerebellar lacunar infarcts. D/ / 02/28/2017 11:00:27 Sherry Pollock MD / [email or web address] Interpreting Provider: Sherry Pollock MD Chest X-Ray 03/01/17 09:09 IMPRESSION: COPD without acute cardiopulmonary process identified. D/ / Rosalio Edwards MD / Rosalio Edwards MD Interpreting Provider: Rosalio Edwards MD Videofluoroscopic Swallow 03/01/17 14:28 IMPRESSION: No aspiration. Transient penetration with applesauce and thin liquid. Please see separate speech pathology report for full discussion of findings and recommendations. D/ / Olu Emerson MD / Olu Emerson MD Interpreting Provider: Olu Emerson MD Consult Discharge Plan - Plan Referrals: NONE,PCP [Primary Care Provider] - Corine Dempsey MD [Non-Partnered Physician] - 03/15/17 1:30 pm Prescriptions: OxyCODONE Immed Rel [Roxicodone 5 MG] 5 mg PO Q6HR PRN #9 tablet PRN Reason: Moderate Pain (4-6) Atorvastatin [Lipitor] 40 mg PO HS #30 tablet Lidocaine Patch [Lidoderm 5% patch] 1 each TP DAILY PRN #30 adh..patch PRN Reason: Pain Sennosides [Senna] 8.6 mg PO BID PRN #60 tablet PRN Reason: Constipation <Pro Bunn P - Last Filed: 03/02/17 17:35> Date of Encounter: 03/02/17 - Constitutional Vitals: Temp Pulse Resp BP Pulse Ox 97.4 F L 75 18 176/89 95 03/02/17 15:07 03/02/17 15:07 03/02/17 15:07 03/02/17 15:07 03/02/17 15:07 Internal Medicine: Result - Labs CBC & Chem 7: 03/02/17 03:14 03/02/17 03:14 Labs: Short CBC 03/02/17 Range/Units 03:14 WBC 6.7 (4.3-11.1) K/mcL Hgb 9.8 L (11.5-15.4) g/dL Hct 32.0 L (35.3-44.9) % Plt Count 176 (140-400) K/mcL BMP 03/02/17 03:14 Sodium 139 Potassium 4.3 Chloride 104 Carbon Dioxide 25 BUN 23 H Creatinine 0.91 Glucose 119 H Calcium 9.3 - Impressions Impressions Brain MRI 02/28/17 08:27 IMPRESSION: No acute intracranial abnormality. Remote, small posterior right frontal lobe infarct. Mild chronic microvascular ischemic disease and multiple, remote bilateral cerebellar lacunar infarcts. D/ / 02/28/2017 11:00:27 Sherry Pollock MD / [email or web address] Interpreting Provider: Sherry Pollock MD - Attending Attestation I examined this patient and my medical decision-making was reviewed with the Resident Physician. I agree with the documented findings, disposition and treatment plan as described except to the extent set forth below. Home tomorrow
[2017-03-02] MEDS: Nitrofurantoin (BID) 100 MG CAPSULE PO SCH (12:28)
[2017-03-02] MEDS: Benzocaine 20% 9 GM GEL..GRAM. TP PRN (23:15)
[2017-03-03] MEDS: Ipratropium/Albuterol Neb 3 ML IH SCH ×4 (04:28→22:33)
[2017-03-03] MEDS: Nitrofurantoin (BID) 100 MG CAPSULE PO SCH ×3 (06:19→16:58)
[2017-03-03] MEDS: *HR* OxyCODONE Immed Rel 5 MG TABLET PO PRN ×2 (06:24→21:06)
--- NOTE | 2017-03-03 07:40 | Discharge Summary ---
<Rosalio Price - Last Filed: 03/03/17 08:10> Date of Encounter: 03/03/17 Time of Encounter: 07:40 - Discharge Diagnosis (1) CVA (cerebral vascular accident) Priority: Primary Status: Acute Comments: Patient presented with stroke-like symptoms, acute onset of visual changes, shaking activity, weakness and fall in the bathroom She reports numbness and weakness in her right leg and right digits 3 -5 and seeing black spots this morning. She was not to be candidate for tPA thrombolysis due to onset of symptoms early Sunday morning CT head shows old B/L basal ganglia infarcts along with new infarct in left centrum semiovale white matter, uncertain duration. MRI of brain showed no acute intracranial abnormality. There is remote small posterior right frontal lobe infarct and remote bilateral derebellar lacunar infarcts. noted. 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 CXR shows findings suggestive of mild pulmonary edema. Echocardiogram reveals LVEF 60-65%. Mild left ventricular diastolic dysfunction. Received a dose of IV Lasix in the ER. Spot dose Lasix as needed to avoid further CHARLI. Monitor urine output Monitor BP closely Low dose Coreg and Lisinopril Qualifiers: Congestive heart failure type: diastolic Congestive heart failure chronicity: acute Qualified Code(s): I50.31 - Acute diastolic (congestive) heart failure (3) UTI (urinary tract infection) Priority: Primary Status: Acute Comments: Patient reports urinary frequency/ urgency UA positive nitirites, trace leukocyte esterase, 5-15 WBC, and many Bacteria E. coli growth on urine culture, sensitive to Macrobid She received 3 days of Azithromycin Allergic to PCN Macrobid 100mg PO BID of 5 days Qualifiers: Urinary tract infection type: acute cystitis Hematuria presence: without hematuria Qualified Code(s): N30.00 - Acute cystitis without hematuria (4) CHARLI (acute kidney injury) Priority: Primary Status: Resolved Comments: Previous serum creatinine noted to be normal; mildly elevated at 1.28 on admission; repeat BMP improved after IV hydration; likely dehydration. (5) Essential (primary) hypertension Priority: Secondary Status: Acute Comments: Monitor BP closely Low dose Coreg and Lisinopril (6) HLD (hyperlipidemia) Priority: Primary Status: Acute Comments: Started on statin Qualifiers: Hyperlipidemia type: pure hypercholesterolemia Qualified Code(s): E78.00 - Pure hypercholesterolemia, unspecified; E78.0 - Pure hypercholesterolemia (7) CAD (coronary artery disease) Priority: Secondary Status: Chronic Comments: h/o- PCI, however states she does not take any home meds. Continue ASA, statin as above. Monitor BP closely Qualifiers: Coronary Disease-Associated Artery/Lesion type: [place] artery [place] vs. transplanted heart: [place] heart Associated angina: with unspecified angina Qualified Code(s): I25.119 - Atherosclerotic heart disease of [place] coronary artery with unspecified angina pectoris (8) Diabetes mellitus Priority: Secondary Status: Chronic Comments: HGB a1c 5.7 Diet controlled Continue to monitor Qualifiers: Diabetes mellitus type: type 2 Diabetes mellitus complication status: with unspecified complications Diabetes mellitus long-term insulin use: unspecified ferry terminal agent insulin use status Qualified Code(s): E11.8 - Type 2 diabetes mellitus with unspecified complications (9) Anemia Priority: Secondary Status: Chronic Comments: Noted to have fluctuating Hgb, was around 12 two months ago, now 10. Check stool for occult blood, iron profile, Vit B12, FA levels. Recent Colonoscopy was normal except diverticulosis. Continue to monitor Qualifiers: Anemia type: unspecified type Qualified Code(s): D64.9 - Anemia, unspecified (10) Back pain Priority: Secondary Status: Acute Comments: Secondary to recent back surgery; start pain control with PRN Oxycodone and IV Morphine, monitor closely Qualifiers: Back pain location: low back pain Chronicity: chronic Back pain laterality: midline Sciatica presence: without sciatica Qualified Code(s): M54.5 - Low back pain; G89.29 - Other chronic pain; G89.29 - Other chronic pain (11) Constipation Priority: Primary Status: Acute Comments: Patient on opiods for back pain Continue laxatives Qualifiers: Constipation type: drug induced constipation Qualified Code(s): K59.03 - Drug induced constipation (12) DVT prophylaxis Priority: Primary Status: Acute Comments: SCDs - Discharge Medications Prescriptions: OxyCODONE Immed Rel [Roxicodone 5 MG] 5 mg PO Q6HR PRN #9 tablet PRN Reason: Moderate Pain (4-6) Atorvastatin [Lipitor] 40 mg PO HS #30 tablet Carvedilol [Coreg] 3.125 mg PO BIDWM #60 tablet Lidocaine Patch [Lidoderm 5% patch] 1 each TP DAILY PRN #30 adh..patch PRN Reason: Pain Lisinopril [Zestril] 2.5 mg PO DAILY #30 tablet Nitrofurantoin (BID) [Macrobid] 100 mg PO BIDWM #8 capsule Sennosides [Senna] 8.6 mg PO BID PRN #60 tablet PRN Reason: Constipation Home Medications: Fluticasone Propionate Nasal [Flonase] 1 spr NS BID 02/28/17 [History] Losartan [Cozaar] 25 mg PO DAILY 02/28/17 [History] Oxycodone HCl/Acetaminophen [Percocet 10-325 mg Tablet] 1 tab PO BID PRN [History] Pramipexole Di-HCl [Pramipexole Dihydrochloride] 1.5 mg PO DAILY 02/28/17 [ History] ALPRAZolam [Xanax 0.25 MG Tablet] 0.25 mg PO BID PRN tablet 03/02/17 [Rx] Acetaminophen [Tylenol] 650 mg PO Q6HR PRN tablet 03/02/17 [Rx] Aspirin Enteric Coated [Aspirin EC] 81 mg PO DAILY tablet. 03/02/17 [Rx] Atorvastatin [Lipitor] 40 mg PO HS #30 tablet 03/02/17 [Rx] Benzocaine 20% [Orajel] 1 gm TP TID PRN gel..gram. 03/02/17 [Rx] Docusate [Colace] 100 mg PO DAILY PRN capsule 03/02/17 [Rx] GuaiFENesin/Dextromethorphan [Mucinex Dm] 1 each PO BID tab.er.12h 03/02/17 [Rx ] Lidocaine Patch [Lidoderm 5% patch] 1 each TP DAILY PRN #30 adh..patch 03/02/17 [Rx] OxyCODONE Immed Rel [Roxicodone 5 MG] 5 mg PO Q6HR PRN #9 tablet 03/02/17 [Rx] Sennosides [Senna] 8.6 mg PO BID PRN #60 tablet 03/02/17 [Rx] Carvedilol [Coreg] 3.125 mg PO BIDWM #60 tablet 03/03/17 [Rx] Lisinopril [Zestril] 2.5 mg PO DAILY #30 tablet 03/03/17 [Rx] Nitrofurantoin (BID) [Macrobid] 100 mg PO BIDWM #8 capsule 03/03/17 [Rx] Allergies/Adverse Reactions: 3 Allergy/AdvReac Type Severity Reaction Status Date / Time Penicillins Allergy Hives Verified 10/05/15 14:29 IVP Dye AdvReac Vomiting Uncoded 06/02/15 12:38 Procedures/tests Complete & Pending: Procedures Performed prior 72 hours Category Date Time Status MR head/brain wo con [MR] Routine MRI 02/28/17 08:27 Completed EV carotid duplex imaging BI Routine Y 02/28/17 08:27 Completed EV echo with saline Routine Y 02/28/17 08:27 Completed Date of admission: 02/28/17 10:15 Primary care physician: PCP NONE Consults: 02/28/17 08:25 Consult to Occupational Therapy [CONS] Routine Comment: Evaluate, develop and implement POC Reason for Consult: Back pain, right arm/hand weakness, generalized weakness Consult to Physical Therapy [CONS] Routine Comment: Evaluate, develop and implement POC Reason for Consult: Back pain, right arm/hand weakness, generalized weakness 02/28/17 09:01 Consult to Neurology [CONS] Routine Consulting Provider: [facility] Reason for Consult: Right UE Weakness, new lacunar infarct on CT head Call Completed: No 03/01/17 14:15 Consult to Speech Therapy [CONS] Routine Comment: Evaluate, develop and implement POC Reason for Consult: r/o aspiration s/p CVA, please perform modified barium swallow study Call Completed: No 03/02/17 08:59 Consult to Power Brake Operator [CONS] Routine Reason for SW Consult: PT recommending swing bed Discharging clinician: Rosalio Price Anticipated date of discharge: 03/03/17 - Patient Status Disposition: Transfer Inpatient Rehab Fac Condition: Good Functional capacity at discharge: uses cane/walker Overall status at discharge: patient is progressing back to baseline - Discharge Instructions Follow Up With: NONE,PCP [Primary Care Provider] - Corine Dempsey MD [Non-Partnered Physician] - 03/15/17 1:30 pm Additional Instructions: Follow up with PCP in 1-2 weeks Follow up with Neurologist, Dr. Moreno in 1-2 weeks Follow up with Vascular surgeon in 3-6 months for carotid stenosis - Diet and Activity Activity: ambulate only with your walker, increase activity as tolerated Diet: diabetic diet Hospital course: Ms. Cochran is a 81 year old female with a PMH of CVA, CAD, and recent spinal surgery that was brought in by family with c/o- generalized weakness and not feeling herself for 2 days with episodes of staggering and dizziness, and intermittent mild confusion on 02/26/17. Patient reported right arm and hand weakness and hand numbness and seeing black spots. No blurred vision, dysphagia , or slurred speech. She was not to be candidate for tPA thrombolysis due to onset of symptoms early Sunday morning. CT head shows old B/L basal ganglia infarcts along with new infarct in left centrum semiovale white matter, uncertain duration. MRI of brain showed no acute intracranial abnormality. There is remote small posterior right frontal lobe infarct and remote bilateral derebellar lacunar infarcts. Carotid artery duplex revealed left proximal ICA has a moderate, 40-59% stenosis. Patient passed video swallow study. Patient started on Aspirin and statin for secondary CVA prevention. Patient was dyspneic and congested, mild pedal edema on admission. Chest XRay shows findings suggestive of mild pulmonary edema. Echocardiogram revealed LVEF 60-65%. Mild left ventricular diastolic dysfunction. Received a dose of IV Lasix and was started on low dose Coreg and Lisinopril. Patient reported urinary frequency/ urgency, had E. coli growth on urine culture, and was treated with Macrobid for 5 days. Patient discharged to inpatient rehab and instructed to follow up with PCP, neurology, and vascular surgery. - Time Spent with Patient Total time spent providing and/or coordinating discharge services: - Constitutional Vitals: Temp Pulse Resp BP Pulse Ox 97.9 F 60 14 111/62 93 03/03/17 07:31 03/03/17 07:31 03/03/17 07:31 03/03/17 07:31 03/03/17 07:31 General appearance: Present: cooperative, A&O X 3, pleasant, no acute distress, answers questions appropriately - Head Head exam: Present: atraumatic, normal inspection, normocephalic - Eye Eye exam: Present: EOMI, PERRL - ENT ENT exam: Present: mucous membranes moist, normal oropharynx - Neck Neck exam general surgery: Present: normal inspection, supple. Absent: tenderness - Respiratory Respiratory exam: Present: CTAB. Absent: rhonchi, tachypnea - Cardiovascular Cardiovascular exam: Present: RRR, +S1, +S2 - GI/Abdominal GI/Abdominal exam: Present: normal bowel sounds. Absent: guarding, tenderness - Extremities Exam Extremities exam: Present: normal inspection, warm. Absent: pedal edema - Back Exam Back exam: Present: normal inspection. Absent: paraspinal tenderness, tenderness - Neurological Exam Neurological exam: Present: alert, oriented X3, no focal deficits. Absent: facial droop, speech deficit - Psychiatric Psychiatric exam: Present: normal affect, normal mood - Skin Skin exam: Present: dry, warm. Absent: pallor - Stroke Contraindication Not Initiating IV-Tpa: Medical contraindication Onset of Symptoms Date: 02/26/17 Symptom Onset Unknown: Yes Has Patient Been Evaluated by Rehab for Stroke: Yes <Pro Bunn - Last Filed: 03/03/17 17:37> Date of Encounter: 03/03/17 Date of admission: 02/28/17 10:15 Primary care physician: PCP NONE Consults: 02/28/17 08:25 Consult to Occupational Therapy [CONS] Routine Comment: Evaluate, develop and implement POC Reason for Consult: Back pain, right arm/hand weakness, generalized weakness Consult to Physical Therapy [CONS] Routine Comment: Evaluate, develop and implement POC Reason for Consult: Back pain, right arm/hand weakness, generalized weakness 02/28/17 09:01 Consult to Neurology [CONS] Routine Consulting Provider: [facility] Reason for Consult: Right UE Weakness, new lacunar infarct on CT head Call Completed: No 03/01/17 14:15 Consult to Speech Therapy [CONS] Routine Comment: Evaluate, develop and implement POC Reason for Consult: r/o aspiration s/p CVA, please perform modified barium swallow study Call Completed: No 03/02/17 08:59 Consult to Power Brake Operator [CONS] Routine Reason for SW Consult: PT recommending swing bed Hospital course: Ms. Cochran is a 81 year old female - Time Spent with Patient Total time spent providing and/or coordinating discharge services: - Constitutional Vitals: Temp Pulse Resp BP Pulse Ox 98.1 F 64 17 122/70 91 03/03/17 16:07 03/03/17 16:07 03/03/17 16:07 03/03/17 16:07 03/03/17 16:07 - Attending Attestation I examined this patient and my medical decision-making was reviewed with the Resident Physician. I agree with the documented findings, disposition and treatment plan as described except to the extent set forth below.
[2017-03-03] MEDS: Sennosides 8.6 MG TABLET PO SCH (09:20)
[2017-03-03] MEDS: Aspirin Enteric Coated 81 MG Tablet PO SCH (09:20)
[2017-03-03] MEDS: GuaiFENesin/Dextromethorphan TABLET PO SCH ×2 (09:20→21:06)
[2017-03-03] MEDS: *HR* Morphine 2 MG/ML SYRINGE IVP PRN (09:27)
[2017-03-03] MEDS ORDERED: Sennosides 8.6 MG TABLET PO ONE ×2 (20:31→21:15)
[2017-03-04] MEDS: Ipratropium/Albuterol Neb 3 ML IH SCH ×4 (03:04→23:13)
[2017-03-04] MEDS: *HR* OxyCODONE Immed Rel 5 MG TABLET PO PRN ×2 (06:07→17:05)
[2017-03-04] MEDS: *HR* Morphine 2 MG/ML SYRINGE IVP PRN ×3 (06:46→20:09)
[2017-03-04] MEDS: Nitrofurantoin (BID) 100 MG CAPSULE PO SCH ×2 (09:10→17:04)
[2017-03-04] MEDS: GuaiFENesin/Dextromethorphan TABLET PO SCH ×2 (09:10→20:08)
[2017-03-04] MEDS: Aspirin Enteric Coated 81 MG Tablet PO SCH (09:10)
[2017-03-04] MEDS: Sennosides 8.6 MG TABLET PO SCH (09:10)
[2017-03-04] MEDS ORDERED: SODIUM CHLORIDE/NAHCO3/KCL/PEG 4,000 ML SOLN.RECON PO ONE (10:18)
[2017-03-04] MEDS: Sennosides 8.6 MG TABLET PO ONE (10:54)
--- NOTE | 2017-03-04 11:21 | Event Note ---
Date of Encounter: 03/04/17 Time of Encounter: 11:20 Patient is medically clear. Patient is awaiting for placement Likely she will go to ECF/SNF tomorrow
[2017-03-04] MEDS ORDERED: Sennosides 8.6 MG TABLET PO SCH (21:00)
[2017-03-05] MEDS: Ipratropium/Albuterol Neb 3 ML IH SCH ×3 (03:33→16:33)
[2017-03-05] MEDS: *HR* OxyCODONE Immed Rel 5 MG TABLET PO PRN (04:16)
[2017-03-05] MEDS: Sennosides 8.6 MG TABLET PO ONE (09:11)
[2017-03-05] MEDS: Nitrofurantoin (BID) 100 MG CAPSULE PO SCH (09:11)
[2017-03-05] MEDS: Aspirin Enteric Coated 81 MG Tablet PO SCH (09:11)
[2017-03-05] MEDS: GuaiFENesin/Dextromethorphan TABLET PO SCH (09:12)
[2017-03-05] MEDS: Sennosides 8.6 MG TABLET PO SCH (09:13)
--- NOTE | 2017-03-05 11:54 | Event Note ---
<Rosalio Price - Last Filed: 03/05/17 11:52> Date of Encounter: 03/05/17 Time of Encounter: 11:52 Patient is medically clear. Continue laxatives and enema for opiate induced constipation. Patient is awaiting for placement to ECF/SNF <Pro Bunn - Last Filed: 03/05/17 17:41> Date of Encounter: 03/05/17 I examined this patient and my medical decision-making was reviewed with the Resident Physician. I agree with the documented findings, disposition and treatment plan as described except to the extent set forth below.
[2017-03-05 19:36] VITALS: BP 125/85
== END 2017-03-05 21:00 | DRG 64 ==
LOC: 2NENU
PROVIDERS: ADMIT Internal Medicine; ATTEND Internal Medicine

== ENCOUNTER 2021-10-11 06:28 | Observation (INO) ==
[2021-10-11] MEDS ORDERED: Ondansetron 4 MG/2 ML VIAL IVP PRN ×2 (06:46→12:35)
[2021-10-11] MEDS ORDERED: Ondansetron 4 MG/2 ML VIAL ONE (06:52)
[2021-10-11] MEDS ORDERED: *HR* Propofol 200 MG/20 ML VIAL IVP ONE (06:58)
[2021-10-11] MEDS ORDERED: Famotidine 20 MG TABLET PO ONE (07:00)
[2021-10-11] MEDS ORDERED: ACETAMINOPHEN 650 MG/65 ML IVPB ONE (07:01)
[2021-10-11] MEDS ORDERED: Famotidine 20 MG/2 ML VIAL IVP ONE (07:01)
[2021-10-11] MEDS ORDERED: *HR* FentaNYL (PF) 100 MCG/2 ML VIAL ONE ×2 (07:01→08:42)
[2021-10-11] MEDS ORDERED: CeFAZolin Syr 2,000MG/20 ML 2,000 MG/20 ML SYRINGE IVPB ONE (07:02)
[2021-10-11] MEDS ORDERED: Ringers Solution, Lactated 1,000 ML IVC SCH ×2 (07:15→12:35)
[2021-10-11] MEDS ORDERED: *HR* Labetalol 20 MG/4 ML SYRINGE IVP ONE (08:57)
[2021-10-11] MEDS: *HR* HYDROmorphone PF 0.5 MG/0.5 ML SYRINGE IVP PRN ×2 (10:50→10:55)
[2021-10-11] MEDS: *HR* FentaNYL (PF) 100 MCG/2 ML VIAL IVP PRN ×4 (11:00→11:15)
[2021-10-11] MEDS ORDERED: ROPIVACAINE/PF/NS 0.25% 1 EACH SYRINGE INTRAART ONE (11:29)
[2021-10-11] MEDS ORDERED: *HR* Promethazine 25 MG/ML VIAL IM PRN (12:35)
[2021-10-11] MEDS ORDERED: MOM Conc 10 ML UD.LIQ PO PRN (12:35)
[2021-10-11] MEDS ORDERED: *HR* HYDROmorphone (PF) 1 MG/ML SYRINGE IVP PRN (12:35)
[2021-10-11] MEDS ORDERED: Naloxone 0.4 MG/ML INJ IVP PRN (12:35)
[2021-10-11] MEDS ORDERED: Sennosides 8.6 MG TABLET PO PRN (12:35)
[2021-10-11] MEDS: CeFAZolin 2 GM/120 ML BAG IVPB SCH ×2 (15:58→23:22)
[2021-10-11] MEDS: Ascorbic Acid 500 MG TABLET PO SCH (16:54)
[2021-10-11] MEDS: *HR* OxyCODONE Immed Rel 5 MG TABLET PO PRN (20:46)
[2021-10-11] MEDS: traZODone 50 MG TABLET PO SCH (20:47)
[2021-10-11] MEDS: Diphenoxylate/Atropine 1 TAB TABLET PO SCH (20:47)
[2021-10-11] MEDS: Apixaban 5 MG TABLET PO SCH (20:47)
[2021-10-12 04:01] LABS: Basophils % 0.2 %; Hemoglobin 8.4 g/dL (11.5-15.4); Immature Granulocytes % 0.5 % (0-4); Lymphocytes # 0.6 K/mcL (0.6-4.6); Lymphocytes % 9.7 %; Mean Corpuscular HGB Conc 32.3 g/dL (31.6-35.5); Mean Corpuscular Hemoglobin 31.2 pg (28.0-33.3); Mean Corpuscular Volume 96.7 fL (83.0-100.0); Mean Platelet Volume 10.6 fL (9.4-12.4); Monocytes # 0.6 K/mcL (0.0-1.3); Monocytes % 9.6 %; Platelet Count 101 K/mcL (140-400); Red Blood Count 2.69 M/mcL (3.82-4.97); Red Cell Distribution Width 13.3 % (11.5-14.5); White Blood Count 6.3 K/mcL (4.3-11.1)
[2021-10-12 04:25] LABS: Calcium 8.9 mg/dL (8.6-10.3)
[2021-10-12] MEDS: Ascorbic Acid 500 MG TABLET PO SCH ×2 (07:44→18:32)
[2021-10-12] MEDS: Apixaban 5 MG TABLET PO SCH ×2 (07:44→20:03)
[2021-10-12] MEDS: Diphenoxylate/Atropine 1 TAB TABLET PO SCH ×2 (07:44→20:06)
[2021-10-12] MEDS: Multivit/Ca/Min/Fe/FA 1 TAB TABLET PO SCH (07:44)
[2021-10-12] MEDS: *HR* OxyCODONE Immed Rel 5 MG TABLET PO PRN ×2 (13:24→20:03)
[2021-10-12] MEDS: traZODone 50 MG TABLET PO SCH (20:04)
[2021-10-13 05:16] LABS: Hematocrit 25.2 % (35.3-44.9); Immature Granulocytes % 0.2 % (0-4)
[2021-10-13 05:18] LABS: Basophils % 0.2 %; Eosinophils # 0.1 K/mcL (0.0-0.6); Eosinophils % 2.7 %; Immature Platelets 3.1 % (1.1-6.1); Lymphocytes # 0.9 K/mcL (0.6-4.6); Lymphocytes % 20.4 %; Mean Corpuscular HGB Conc 31.7 g/dL (31.6-35.5); Mean Corpuscular Volume 97.7 fL (83.0-100.0); Mean Platelet Volume 10.9 fL (9.4-12.4); Monocytes # 0.4 K/mcL (0.0-1.3); Monocytes % 9.2 %; Red Blood Count 2.58 M/mcL (3.82-4.97); Red Cell Distribution Width 13.8 % (11.5-14.5); Segmented Neutrophils % 67.3 %; White Blood Count 4.5 K/mcL (4.3-11.1)
[2021-10-13 05:24] LABS: Platelet Count 76 K/mcL (140-400)
[2021-10-13 05:26] LABS: Platelet Estimate Decreased (Normal)
[2021-10-13 05:32] LABS: BUN/Creatinine Ratio 14 (6-26); Blood Urea Nitrogen 13 mg/dL (8-23); Calcium 8.4 mg/dL (8.6-10.3); Carbon Dioxide 28 mEq/L (23-29); Chloride 106 mEq/L (98-107); Glucose 108 mg/dL (70-105); Osmolality,Calculated 287 (280-300); Sodium 138 mEq/L (136-145); eGFR For African Americans > 60 (> 60); eGFR For Non-African Americans 59 (> 60)
[2021-10-13] MEDS: Multivit/Ca/Min/Fe/FA 1 TAB TABLET PO SCH (09:38)
[2021-10-13] MEDS: Ascorbic Acid 500 MG TABLET PO SCH ×2 (09:39→16:08)
[2021-10-13] MEDS: Apixaban 5 MG TABLET PO SCH ×2 (09:39→20:29)
[2021-10-13] MEDS: Diphenoxylate/Atropine 1 TAB TABLET PO SCH ×2 (09:39→20:30)
[2021-10-13] MEDS: *HR* OxyCODONE Immed Rel 5 MG TABLET PO PRN ×2 (09:48→16:08)
[2021-10-13] MEDS: HYDROcodone BIT/Homatropine 5 MG TABLET PO PRN (20:29)
[2021-10-13] MEDS: traZODone 50 MG TABLET PO SCH (20:29)
[2021-10-14 06:59] VITALS: BP 184/72; PULSE 71; TEMP 98.3; O2SAT 93
[2021-10-14] MEDS: Diphenoxylate/Atropine 1 TAB TABLET PO SCH (08:03)
[2021-10-14] MEDS: HYDROcodone BIT/Homatropine 5 MG TABLET PO PRN (08:03)
[2021-10-14] MEDS: Apixaban 5 MG TABLET PO SCH (08:03)
[2021-10-14] MEDS: Ascorbic Acid 500 MG TABLET PO SCH (08:03)
[2021-10-14] MEDS: Multivit/Ca/Min/Fe/FA 1 TAB TABLET PO SCH (08:04)
[2021-10-14 10:37] LABS: Adenovirus Not Detected (Not Detect); Bordetella Pertussis Not Detected (Not Detect); Chlamydophila pneumoniae Not Detected (Not Detect); Coronavirus 229E Not Detected (Not Detect); Coronavirus HKU1 Not Detected (Not Detect); Coronavirus NL63 Not Detected (Not Detect); Coronavirus OC43 Not Detected (Not Detect); Human Metapneumovirus Not Detected (Not Detect); Human Rhinovirus/Enterovirus Not Detected (Not Detect); Influenza A Subtype 2009 H1 Not Detected (Not Detect); Influenza B Not Detected (Not Detect); Mycoplasma pneumoniae Not Detected (Not Detect); Parainfluenza Virus 1 Not Detected (Not Detect); Parainfluenza Virus 2 Not Detected (Not Detect); Parainfluenza Virus 3 Not Detected (Not Detect); Parainfluenza Virus 4 Not Detected (Not Detect); Respiratory Syncytial Virus Not Detected (Not Detect); SARS-CoV-2 Not Detected (Not Detect)
[2021-10-14] MEDS: *HR* OxyCODONE Immed Rel 5 MG TABLET PO PRN (12:31)
== END 2021-10-14 16:10 ==
LOC: SDCAOSI 06:28 → 4WAOSI 06:28 → UNDODISOB 10-14 14:10
PROVIDERS: ADMIT Orthopaedic Surgery; ATTEND Orthopaedic Surgery